=== PATIENT | female | born 1965 | race Caucasian/White ===

== ENCOUNTER 2022-10-21 14:59 | Outpatient (CLI) | payer BC, SELFPAY ==
--- NOTE | 2022-10-21 15:20 | CRLHL7_ITS ---
For Patients: As a result of the Century Cures Act, medical imaging exams and procedure reports are released immediately into your electronic medical record. You may view this report before your referring provider. If you have questions, please contact your health care provider. BILATERAL SCREENING MAMMOGRAM WITH COMPUTER-AIDED DETECTION AND TOMOSYNTHESIS TECHNIQUE: CC and MLO views were obtained. These mammographic images have been obtained using full-field digital technique. These mammographic images were interpreted with the benefit of computer-aided detection. Breast Tomosynthesis was used in this interpretation. COMPARISON FILM: 09/22/21, 08/26/20, 07/24/19. FINDINGS: The breasts are heterogeneously dense, which may obscure small masses IMPRESSION: There is no radiographic evidence for malignancy. ASSESSMENT: BI-RADS Category 1: Negative RECOMMENDATION: Routine screening mammogram in 1 year. A lay language report of this examination will be provided to the patient. Wilman Mi M.D. Diagnostic Radiologist [email or web address] Transcribed: 3:45 pm DW/Dictated by: Wilman Mi MD @ 10/22/2022 9:07:00 AM (Electronically Signed)
== END 2022-10-21 15:00 | disposition home or self-care (01) ==
LOC: MAMMO 15:00
PROVIDERS: PCP Family Medicine; Visit Provider Family Medicine
DX: Z12.31 Encounter for screening mammogram for malignant neoplasm of breast (principal); R92.2 Inconclusive mammogram
CPT/HCPCS: 77063; 77067

== ENCOUNTER 2023-10-26 07:58 | Outpatient (CLI) | payer BC, SELFPAY ==
--- NOTE | 2023-10-26 08:15 | MM_ITS ---
Patient: SENAIT MONAHAN Facility:?[facility] Patient ID:?[id number] Site Patient ID:?[id number]. Site :?1965 Study:?XRay-Breast Bilateral 3D W/CAD-10/26/2023 8:20:18 AM Ordering Physician:Mayda Stinson Final Report: BILATERAL SCREENING MAMMOGRAM WITH COMPUTER-AIDED DETECTION AND TOMOSYNTHESIS TECHNIQUE: CC and MLO views were obtained. These mammographic images have been obtained using full-field digital technique. These mammographic images were interpreted with the benefit of computer-aided detection. Breast Tomosynthesis was used in this interpretation. COMPARISON FILM: 10/21/22, 09/22/21, 08/26/20. FINDINGS: There are scattered areas of fibroglandular density. IMPRESSION: There is no radiographic evidence for malignancy. ASSESSMENT: BI-RADS Category 1: Negative RECOMMENDATION: Routine screening mammogram in 1 year. A lay language report of this examination will be provided to the patient. Wilman Mi M.D. Diagnostic Radiologist [email or web address] DSM/sp R& Transcribed: 6:48 p.m. SP/Dictated by: Wilman Mi MD @ 10/27/2023 1:11:00 PM Signed by:?Wilman Mi MD @10/28/2023 11:26:35 AM (Electronic Signature)
== END 2023-10-26 07:59 | disposition home or self-care (01) ==
LOC: MAMMO 07:59
PROVIDERS: PCP Family Medicine; Visit Provider Family Medicine
DX: Z12.31 Encounter for screening mammogram for malignant neoplasm of breast (principal)
CPT/HCPCS: 77063; 77067

== ENCOUNTER 2023-11-16 07:33 | Outpatient (CLI) | payer BC, SELFPAY | END 2023-11-16 07:34 | disposition home or self-care (01) | LOC: NFLDREF 11-17 07:21 | PROVIDERS: PCP Family Medicine; Referring Provider Family Medicine; Visit Provider Family Medicine | DX: Z13.228 Encounter for screening for other metabolic disorders (principal); Z13.220 Encounter for screening for lipoid disorders | CPT/HCPCS: 80053; 80061 ==

== ENCOUNTER 2024-11-23 07:55 | Outpatient (CLI) | payer BC, SELFPAY ==
--- NOTE | 2024-11-23 08:15 | CRLHL7_ITS ---
For Patients: As a result of the Century Cures Act, medical imaging exams and procedure reports are released immediately into your electronic medical record. You may view this report before your referring provider. If you have questions, please contact your health care provider. INDICATION: BILATERAL SCREENING MAMMOGRAM, ASYMPTOMATIC 58 Y/O FEMALE COMPARISON: 10/26/2023, 10/21/2022, 09/22/2021 TECHNIQUE: Digital mammogram in CC and MLO projections including computer-aided detection (CAD) and tomosynthesis. BREAST COMPOSITION: There are scattered areas of fibroglandular density. FINDINGS: No suspicious findings. ASSESSMENT: BI-RADS 1 Negative RECOMMENDATION: Annual screening mammogram. A lay language report of this examination will be provided to the patient. Dictated by: Wilman Mi MD @ 11/23/2024 10:03:51 (Electronically Signed)
== END 2024-11-23 07:56 | disposition home or self-care (01) ==
LOC: MAMMO 07:55
PROVIDERS: PCP Family Medicine; Visit Provider Family Medicine
DX: Z12.31 Encounter for screening mammogram for malignant neoplasm of breast (principal)
CPT/HCPCS: 77063; 77067

== ENCOUNTER 2024-12-21 07:35 | Outpatient (CLI) | payer BC, SELFPAY | END 2024-12-21 07:36 | disposition home or self-care (01) | LOC: NFLDREF 12-24 17:07 | PROVIDERS: PCP Family Medicine; Referring Provider Family Medicine; Visit Provider Family Medicine | DX: R79.89 Other specified abnormal findings of blood chemistry (principal); E78.5 Hyperlipidemia, unspecified; M81.0 Age-related osteoporosis without current pathological fracture; R53.83 Other fatigue | CPT/HCPCS: 80053; 80061; 82306 ==

== ENCOUNTER 2024-12-28 07:55 | Outpatient (CLI) | payer BC, SELFPAY ==
[2025-01-02 09:15] LABS: HPV Source Cervical/Vag; HPV, High Risk by TMA Not Detected
== END 2024-12-28 07:56 | disposition home or self-care (01) ==
PROVIDERS: PCP Family Medicine; Visit Provider Family Medicine
DX: Z12.4 Encounter for screening for malignant neoplasm of cervix (principal); Z11.51 Encounter for screening for human papillomavirus (HPV)
CPT/HCPCS: 87624; 87625; 88141; 88142

== ENCOUNTER 2025-03-14 17:55 | Outpatient (CLI) | payer BC, SELFPAY ==
--- NOTE | 2025-03-14 18:15 | MR_ITS ---
[facility] [address] [address] Phone:?[phone] Fax:?[phone] Referring Physician Information: Alphonso Btets M.D. [id number] [address] Phone:?[phone] Fax:?[phone] Patient:Sandor Sanford D.O.B:?1965 Sex:?Female Phone:?[phone] [facility] MRN:?[id number] Exam Date:?03/14/2025 EXAM: MRI of the LEFT SHOULDER without contrast CLINICAL: Left shoulder pain. Evaluate for rotator cuff tear. COMPARISONS: X-rays 03/07/2025. TECHNICAL: Multiplanar multisequence MRI of the left shoulder was obtained. SEDATION: None. CONTRAST: None. FINDINGS: Rotator cuff: Supraspinatus/Infraspinatus: There is mild tendinosis of the distal supraspinatus tendon with mild partial interstitial insertional tearing of the distal tendon extending into the junction with the anterior distal infraspinatus tendon on coronal series 5 image 14-16. Remainder of the infraspinatus tendon appears intact. No significant fatty atrophy of the muscles. Teres minor: No tendinosis, tear or atrophy. Subscapularis: No tendinosis, tear or atrophy. Bursae: Subacromial-subdeltoid: Minimal bursal fluid. Subcoracoid: No significant bursal fluid. Coracoacromial arch: Acromion morphology: Type II. No os acromiale. Acromiohumeral space: Within normal limits. Coracohumeral space: Within normal limits. Biceps tendon, long head: No tendinosis, tendon tear or displacement. Glenohumeral joint: No significant joint effusion. Articular cartilage: No discrete chondral defects identified. Capsule: No evidence of capsular thickening or injury. Labrum: No discrete labral tear identified on this nonarthrogram exam. No perilabral cyst identified. Bones: There is a relatively nondisplaced fracture involving the greater tuberosity of the proximal humerus with associated adjacent bone marrow edema. Remaining imaged osseous structures appear intact. Acromioclavicular joint: Mild changes of arthrosis. No AC joint injury/widening. IMPRESSION: 1. Nondisplaced fracture involving the greater tuberosity of the proximal humerus with associated adjacent bone marrow edema. 2. Mild tendinosis of the distal supraspinatus tendon with mild partial interstitial insertional tearing of the distal supraspinatus tendon extending into the junction with the anterior distal infraspinatus tendon. 3. Mild AC joint arthrosis. JCZ Electronically signed on 03/15/2025 9:32:00 AM by Vel Blair D.O.
== END 2025-03-14 17:56 | disposition home or self-care (01) ==
LOC: MRI 17:55
PROVIDERS: PCP Family Medicine; Visit Provider Orthopaedic Surgery
DX: M25.512 Pain in left shoulder (principal); S42.202A Unspecified fracture of upper end of left humerus, initial encounter for closed fracture; M75.102 Unspecified rotator cuff tear or rupture of left shoulder, not specified as traumatic; M19.012 Primary osteoarthritis, left shoulder; S49.92XA Unspecified injury of left shoulder and upper arm, initial encounter
CPT/HCPCS: 73221